=== PATIENT | female | born 1990 | race Caucasian/White ===

== ENCOUNTER 2017-09-14 22:01 | Emergency (ER) | payer SELFPAY ==
[~2017-09-14] VITALS: Ht 162.6 cm; Wt 90.7 kg
[2017-09-14] MEDS ORDERED: MACROBID 100 M100 MG PO (23:31)
== END 2017-09-14 23:40 | disposition home or self-care (01) ==
LOC: ED 22:01
DX: R42 Dizziness and giddiness (principal); N39.0 Urinary tract infection, site not specified
CPT/HCPCS: 80053; 81001; 85025; 87088; 99283

== ENCOUNTER 2020-06-16 13:57 | Emergency (ER) | payer BC ==
[~2020-06-16] VITALS: Ht 162.6 cm; Wt 104.8 kg
[~2020-06-16 13:57] MED LIST: MACROBID 100 M100 MG PO; PROTONIX40 MG PO
[2020-06-16] MEDS ORDERED: LEVONORGESTREL1 EACH PO (14:06)
[2020-06-16] MEDS ORDERED: OMEPRAZOLE20 MG PO (14:07)
[2020-06-16] MEDS ORDERED: ELIQUIS5 MG PO (15:54)
== END 2020-06-16 16:22 | disposition home or self-care (01) ==
LOC: ED 13:57
DX: I82.4Z2 Acute embolism and thrombosis of unspecified deep veins of left distal lower extremity (principal); Z79.899 Other long term (current) drug therapy
CPT/HCPCS: 93971; 99283-25

== ENCOUNTER 2020-09-13 23:05 | Emergency (ER) | payer BC ==
[~2020-09-13] VITALS: Ht 162.6 cm; Wt 104.8 kg
[~2020-09-13 23:05] MED LIST changes: +ELIQUIS5 MG PO; +LEVONORGESTREL1 EACH PO; +OMEPRAZOLE20 MG PO
[2020-09-13] MEDS ORDERED: NORETHINDRONE0.35 MG PO (23:15)
== END 2020-09-14 00:24 | disposition home or self-care (01) ==
LOC: ED 23:05
DX: N93.8 Other specified abnormal uterine and vaginal bleeding (principal); Z79.899 Other long term (current) drug therapy
CPT/HCPCS: 80053; 84703; 85025; 85610; 85730; 99284